=== PATIENT | male | born 1980 | race Caucasian/White ===

== ENCOUNTER 2023-08-21 11:07 | Outpatient (REF) | payer OTHER, SELFPAY | END 2023-08-21 11:08 | disposition home or self-care (01) | LOC: HO.BBR 11:07 | PROVIDERS: PCP Internal Medicine; Visit Provider Internal Medicine | DX: Z13.89 Encounter for screening for other disorder (principal) ==

== ENCOUNTER 2023-10-09 13:15 | Outpatient (REF) | payer OTHER, SELFPAY | END 2023-10-09 13:16 | disposition home or self-care (01) | LOC: HO.BBR 13:15 | PROVIDERS: PCP Internal Medicine; Visit Provider Internal Medicine | DX: Z13.89 Encounter for screening for other disorder (principal) ==

== ENCOUNTER 2023-10-24 13:09 | Outpatient (REF) | payer OTHER, SELFPAY | END 2023-10-24 13:10 | disposition home or self-care (01) | LOC: HO.BBR 13:09 | PROVIDERS: PCP Internal Medicine; Visit Provider Internal Medicine | DX: Z13.89 Encounter for screening for other disorder (principal) ==

== ENCOUNTER 2023-11-27 11:03 | Outpatient (REF) | payer OTHER, SELFPAY | END 2023-11-27 11:04 | disposition home or self-care (01) | LOC: HO.BBR 11:03 | PROVIDERS: PCP Internal Medicine; Visit Provider Internal Medicine | DX: Z13.89 Encounter for screening for other disorder (principal) ==

== ENCOUNTER 2023-12-31 11:00 | Outpatient (REF) | payer OTHER, SELFPAY | END 2023-12-31 11:01 | disposition home or self-care (01) | LOC: HO.BBR 11:00 | PROVIDERS: PCP Internal Medicine; Visit Provider Internal Medicine | DX: Z13.89 Encounter for screening for other disorder (principal) ==

== ENCOUNTER 2024-01-31 10:01 | Outpatient (REF) | payer OTHER, SELFPAY | END 2024-01-31 10:02 | disposition home or self-care (01) | LOC: HO.BBR 10:01 | PROVIDERS: Visit Provider Internal Medicine | DX: Z13.89 Encounter for screening for other disorder (principal) ==

== ENCOUNTER 2024-03-03 11:10 | Outpatient (REF) | payer OTHER, SELFPAY ==
--- OUTSIDE RECORDS SUMMARY | 2024-03-03 16:07 | XMS_ITS | Clinical Summary ---
Author Organization [employer] Address [address] [place] [address] Care Team Providers Care Portable Track Line Marker Name Role Phone Unavailable Primary Care Provider Unavailabl e Allergies Active Allergy Reactions Criticality Noted Date Comments Ciprofloxacin 10/11/2016 Other reaction(s): Nausea/Vomiting Erythromycin 10/11/2016 Other reaction(s): Nausea/Vomiting Latex Rash Low 10/11/2016 Penicillins Unknown 10/11/2016 Social History Tobacco Use Types Packs/Day Years Used Date Smoking Tobacco: Never Assessed Sex and Gender Information Value Date Recorded Sex Assigned at Male 12/05/2021 10:32 AM EDT Legal Sex Male 10:32 AM EDT Gender Identity Male 12/05/2021 10:32 AM EDT Sexual Orientation Straight 12/05/2021 10 :32 AM EDT Plan of Treatment Health Maintenance Due Date Last Done Comments Depression Screening 1981 HIV Screening 1981 Lipid Panel 1981 SDOH Screening 1981 Alcohol/Substance Use Screening 1993 Tobacco Screening 1993 Family Planning (PISQ) 1996 Hepatitis C Screening 11/01/1999 DTaP/Tdap/Td Vaccines (1 - Tdap) 2000 Hepatitis B Vaccines (1 of 3 - 19+ 3-dose series) 2000 Dental Oral Exam 04/11/2017 10/11/2016 Dental Prophylaxis 04/11/2017 10/11/2016 Dental X-Ray: Bitewings 10/12/2017 10/11/2016 Dental X-Ray: Full Mouth 10/13/2019 10/11/2016 COVID-19 Vaccine (3 - 2023-2 5 season) 2023 10/25/2020, 10/04/2020 Influenza Vaccine (#1) 2023 Zoster Vaccines (1 of 2) 11/01/2031 RSV Patients and Patients Aged 60 years or older (1 - 1-dose 75+ series) 2056 HIB Vaccines Aged Out No longer eligi ble based on patient's age to complete this topic HPV Vaccines Aged Out No longer eligi ble based on patient's age to complete this topic Hepatitis A Vaccines Aged Out No long er eligible based on patient's age to complete this topic IPV Vaccines Aged Out No longer eligi ble based on patient's age to complete this topic Meningococcal Vaccine Aged Out No devika jean eligible based on patient's age to complete this topic Pneumococcal Vaccine: Pediatrics (0 to 5 Years) and At-Risk Patients (6 to 64 Years) Aged Out No longer eligible b ased on patient's age to complete this topic RSV under 20 months Aged Out No longe r eligible based on patient's age to complete this topic Rotavirus Vaccines Aged Out No longer eligible based on patient's age to complete this topic Procedures Procedure Name Priority Date/Time Associated Diagnosis Comments PROPHYLAXIS - ADULT Routine 10/11/2016 1 2:00 AM EDT DIAGNOSTIC - DIAGNOSTIC IMAGING - INTRAORAL - COMPREHENSIVE SERIES OF RADIOGRAPHIC IMAGES Routine 10/11/2016 12:00 AM EDT COMPREHENSIVE ORAL EVALUATION - NEW OR ESTABLISHED PATIENT Routine 10/11/2016 12:00 AM EDT from Last 3 Months or Most Recently Relevant to Health Maintenance Insurance DENTAL - [facility]
== END 2024-03-03 11:11 | disposition home or self-care (01) ==
LOC: HO.BBR 11:10
PROVIDERS: PCP Internal Medicine; Visit Provider Internal Medicine
DX: Z13.89 Encounter for screening for other disorder (principal)

== ENCOUNTER 2024-04-03 10:10 | Outpatient (REF) | payer OTHER, SELFPAY ==
--- OUTSIDE RECORDS SUMMARY | 2024-04-03 11:46 | XMS_ITS | Clinical Summary ---
Author Organization [facility] Address [address] [place] [address] Care Team Providers Care Head Filter Tank Tender Helper Name Role Phone Rashel Gamboa MD Primary Care Provider [phone] Allergies Active Allergy Reactions Criticality Noted Date Comments Ciprofloxacin 07/09/2023 Erythromycin 07/09/2023 Latex 07/09/2023 Penicillins 07/09/2023 Medications Medication Sig Dispensed Refills Start Date End Date Status venlafaxine (EFFEXOR-XR) 150 MG 24 hr capsule Take 1 capsule (150 mg total) by mouth daily. 0 Active Active Problems No known active problems Social History Tobacco Use Types Packs/Day Years Used Date Smoking Tobacco: Never Assessed Sex and Gender Information Value Date Recorded Sex Assigned at Male 05/17/2023 9:36 AM EDT Gender Identity Not on file Sexual Orientation Not on file Job Start Date Occupation Industry Not on file Not on file Not on file Last Filed Vital Signs Vital Sign Reading Time Taken Comments Blood Pressure 139/90 12/05/2023 2:20 PM EDT Pulse 94 12/05/2023 2:20 PM EDT Temperature 36.8 ??C (98.2 ??F) 12/05/2023 2:20 PM ED T Respiratory Rate - - Oxygen Saturation 100% 12/05/2023 2:20 PM EDT Inhaled Oxygen Concentration - - Weight 101.2 kg (223 lb) 12/05/2023 2:20 PM EDT Height 188 cm (6' 2 ) 12/05/2023 2:20 PM EDT Body Mass Index 28.63 12/05/2023 2:20 PM EDT Plan of Treatment Health Maintenance Due Date Last Done Comments Hepatitis B Vaccines (1 of 3 - 3-dose series) 1981 Hepatitis C Screening 1981 COVID-19 Vaccine (#1) 04/30/1982 Depression Screening 1993 Preventative Health Evaluation 11/01/1999 DTap / Tdap / Td (1 - Tdap) 2000 Influenza Vaccine (#1) 2023 Pneumococcal Vaccine Aged Out No long er eligible based on patient's age to complete this topic RSV Ped < 20 months Aged Out No longe r eligible based on patient's age to complete this topic Care Teams Head Filter Tank Tender Helper Relationship Specialty Start Date End Date Rashel Gamboa MD PCP - General Internal Medicine 05/17/23
--- OUTSIDE RECORDS SUMMARY | 2024-04-03 11:46 | XMS_ITS | Clinical Summary ---
Author Organization [employer] Address [address] [facility] [address] [facility] [address] [place] [address] Care Team Providers Care Fixed Capital Clerk Name Role Phone Unavailable Primary Care Provider [...] 5 Years) and At-Risk Patients (6 to 49) Years) Aged Out No longer eligible b [...] ADULT Routine 10/11/2016 1 2:00 AM EDT INTRAORAL - COMPLETE SERIES OF RADIOGRAPHIC IMAGES Routine 10/11/2016 12:00 AM EDT COMPREHENSIVE ORAL EVALUATION - NEW OR ESTABLISHED PATIENT Routine 10/11/2016 12:00 AM EDT from Last 3 Months or Most Recently Relevant to Health Maintenance Insurance DENTAL - [facility]
== END 2024-04-03 10:11 | disposition home or self-care (01) ==
LOC: HO.BBR 10:10
PROVIDERS: PCP Internal Medicine; Visit Provider Internal Medicine
DX: Z13.89 Encounter for screening for other disorder (principal)

== ENCOUNTER 2024-05-01 10:57 | Outpatient (REF) | payer OTHER, SELFPAY | END 2024-05-01 10:58 | disposition home or self-care (01) | LOC: HO.BBR 10:57 | PROVIDERS: PCP Internal Medicine; Visit Provider Internal Medicine | DX: Z13.89 Encounter for screening for other disorder (principal) ==

== ENCOUNTER 2024-06-02 11:08 | Outpatient (REF) | payer OTHER, SELFPAY ==
--- OUTSIDE RECORDS SUMMARY | 2024-06-02 13:25 | XMS_ITS | Clinical Summary ---
Author Organization [facility] Address [address] [place] [address] Care Team Providers Care Bottomer Operator Name Role Phone Rashel Gamboa MD Primary Care Provider [phone] Allergies Active Allergy Reactions Criticality Noted Date [...] age to complete this topic Care Teams Bottomer Operator Relationship Specialty Start Date End Date Rashel Gamboa MD PCP - General Internal Medicine 05/17/23
--- OUTSIDE RECORDS SUMMARY | 2024-06-02 13:25 | XMS_ITS | Clinical Summary ---
Author Organization [employer] Address [address] [place] [address] Care Team Providers Care Blanket Winder Operator Name Role Phone Unavailable Primary Care Provider [...] to Health Maintenance Insurance DENTAL - [facility]
== END 2024-06-02 11:09 | disposition home or self-care (01) ==
LOC: HO.BBR 11:08
PROVIDERS: PCP Internal Medicine; Visit Provider Internal Medicine
DX: Z13.89 Encounter for screening for other disorder (principal)